=== PATIENT | female | born 1980 | race Caucasian/White ===

== ENCOUNTER 2016-09-17 17:59 | Outpatient (CLI) | payer OTHER ==
[~2016-09-17] VITALS: Ht 167.6 cm; Wt 68.2 kg
[2016-09-17] MEDS ORDERED: KETOROLAC 30 MG/1 ML ONE (18:29)
[2016-09-17] MEDS ORDERED: KETOROLAC 30 MG/1 ML IM ONE (18:30)
[2016-09-17] MEDS ORDERED: PLEASE ENTER HEIGHT AND WEIGHT MC SCH (18:30)
[2016-09-17 18:45] VITALS: BP 106/55
== END 2016-09-17 20:10 | disposition home or self-care (01) ==
LOC: LDOP 17:59
PROVIDERS: ATTEND Obstetrics & Gynecology
DX: O09.522 Supervision of elderly multigravida, second trimester (principal); O26.892 Other specified pregnancy related conditions, second trimester; R10.9 Unspecified abdominal pain; O62.9 Abnormality of forces of labor, unspecified; Z3A.27 27 weeks gestation of pregnancy
CPT/HCPCS: 36415; 59025; 81003; 82731; 87086; 96372; 99201; J1885; G0463

== ENCOUNTER 2016-09-25 03:04 | Outpatient (CLI) | payer OTHER ==
[~2016-09-25] VITALS: Ht 160 cm; Wt 68.0 kg
[2016-09-25 03:30] VITALS: BP 110/64
[2016-09-25] MEDS ORDERED: KETOROLAC 30 MG/1 ML ONE (04:26)
[2016-09-25] MEDS ORDERED: KETOROLAC 30 MG/1 ML IM ONE (04:30)
== END 2016-09-25 04:45 | disposition home or self-care (01) ==
LOC: LDOP 03:04
PROVIDERS: ATTEND Obstetrics & Gynecology
DX: O09.523 Supervision of elderly multigravida, third trimester (principal); O26.893 Other specified pregnancy related conditions, third trimester; R10.9 Unspecified abdominal pain; O34.13 Maternal care for benign tumor of corpus uteri, third trimester; Z3A.29 29 weeks gestation of pregnancy
CPT/HCPCS: 59025; 81001; 87086; 87147; 99211; J1885; G0463

== ENCOUNTER 2016-11-01 17:15 | Inpatient (IN) | payer OTHER ==
[~2016-11-01] VITALS: Ht 162.6 cm; Wt 68.6 kg
[2016-11-01] MEDS: PLEASE ENTER HEIGHT AND WEIGHT MC SCH (18:30)
[2016-11-01] MEDS ORDERED: MAGNESIUM SULFATE PMX 4GM/100M 100 ML IVPB ONE (18:30)
[2016-11-01] MEDS ORDERED: MAGNESIUM SULF. PMX 20GM/500ML 500 ML IV ONE (18:31)
[2016-11-01] MEDS ORDERED: BETAMETHASONE 6 MG/ML, 5ML IM ONE (18:36)
[2016-11-01] MEDS: LACTATED RINGERS 1,000 ML IV PRN (18:41)
[2016-11-01] MEDS: BETAMETHASONE 6 MG/ML, 5ML IM SCH (18:52)
[2016-11-01] MEDS ORDERED: AMPICILLIN 2 GM IM ONE (19:00)
[2016-11-01] MEDS: MAGNESIUM SULF. PMX 20GM/500ML 500 ML IV SCH (19:12)
[2016-11-01] MEDS ORDERED: AMPICILLIN 2 GM in SODIUM CHLORIDE 0.9% 100 ML IV SCH (19:30)
[2016-11-01 20:02] VITALS: BP 115/62
[2016-11-02] MEDS ORDERED: MAGNESIUM SULF. PMX 20GM/500ML 500 ML IV ONE ×3 (00:55→22:01)
[2016-11-02] MEDS: LACTATED RINGERS 1,000 ML IV PRN ×2 (00:59→11:50)
[2016-11-02] MEDS: AMPICILLIN 1 GM in SODIUM CHLORIDE 0.9% 50 ML IV SCH ×4 (01:00→18:22)
[2016-11-02] MEDS ORDERED: AMPICILLIN 1 GM IVPB SCH (01:00)
[2016-11-02] MEDS: MAGNESIUM SULF. PMX 20GM/500ML 500 ML IV SCH ×3 (01:02→22:05)
[2016-11-02] MEDS: PLEASE ENTER HEIGHT AND WEIGHT MC SCH (02:30)
[2016-11-02] MEDS ORDERED: ACETAMINOPHEN 325 MG TABLET ONE ×2 (07:36→11:57)
[2016-11-02] MEDS: ACETAMINOPHEN 325 MG TABLET PO PRN ×2 (07:39→11:57)
[2016-11-02 07:40] VITALS: BP 113/64
[2016-11-02] MEDS ORDERED: OXYcodone/APAP 5/325MG TABLET ONE (12:15)
[2016-11-02 12:23] VITALS: BP 114/56
[2016-11-02] MEDS ORDERED: OXYcodone/APAP 5/325MG TABLET PO PRN (12:30)
[2016-11-02] MEDS: BETAMETHASONE 6 MG/ML, 5ML IM SCH (18:22)
[2016-11-02 18:23] VITALS: BP 105/55
[2016-11-03] MEDS: AMPICILLIN 1 GM in SODIUM CHLORIDE 0.9% 50 ML IV SCH ×3 (00:36→13:00)
[2016-11-03] MEDS: LACTATED RINGERS 1,000 ML IV PRN (00:36)
[2016-11-03 07:59] VITALS: BP 93/52
[2016-11-03] MEDS ORDERED: MAGNESIUM SULFATE PMX 2GM/50ML 50 ML ONE (08:15)
[2016-11-03] MEDS: MAGNESIUM SULF. PMX 20GM/500ML 500 ML IV SCH (08:19)
[2016-11-03 18:10] VITALS: BP 106/56
[2016-11-03] MEDS ORDERED: NIFE10CA2 PO (18:32)
== END 2016-11-03 20:05 | disposition home or self-care (01) | DRG 778 ==
LOC: LDOP 17:15 → 2NE 18:50
PROVIDERS: ADMIT Obstetrics & Gynecology; ATTEND Obstetrics & Gynecology
DX: O60.03 Preterm labor without delivery, third trimester (principal); O34.13 Maternal care for benign tumor of corpus uteri, third trimester; D25.9 Leiomyoma of uterus, unspecified; O99.820 Streptococcus B carrier state complicating pregnancy; O24.419 Gestational diabetes mellitus in pregnancy, unspecified control; O09.523 Supervision of elderly multigravida, third trimester; Z3A.33 33 weeks gestation of pregnancy
CPT/HCPCS: 36415; 81001; 82731; 82962; 83735; 85025; 86850; 86900; 87081; 87086; 87147; J0290; J0702; J3475; J7120

== ENCOUNTER 2016-11-04 21:17 | Inpatient (IN) | payer OTHER ==
[~2016-11-04] VITALS: Ht 167.6 cm; Wt 72.7 kg
[~2016-11-04 21:17] MED LIST: NIFE10CA2 PO
[2016-11-04 21:30] VITALS: BP 101/56
[2016-11-04] MEDS ORDERED: NEWBORN KIT ONE (21:49)
[2016-11-04] MEDS ORDERED: OXYTOCIN 30U/ 0.9% NaCL 500ML 500 ML ONE (21:49)
[2016-11-04] MEDS ORDERED: D5%-LACTATED RINGERS 1,000 ML IV SCH (22:02)
[2016-11-04] MEDS ORDERED: OXYTOCIN 30U/ 0.9% NaCL 500ML 500 ML IV ONE (22:02)
[2016-11-04] MEDS ORDERED: AMPICILLIN 2 GM in SODIUM CHLORIDE 0.9% 100 ML IVPB STA (22:02)
[2016-11-04] MEDS: LACTATED RINGERS 1,000 ML IV SCH (22:11)
[2016-11-04] MEDS ORDERED: FENTANYL PF 100 MCG/2ML IV PRN (22:30)
[2016-11-04] MEDS ORDERED: TERBUTALINE 1 MG/ML, 1ML IVPush PRN ×2 (22:30)
[2016-11-04] MEDS ORDERED: CALCIUM CARBONATE 500 MG TAB.CHEW PO PRN (22:30)
[2016-11-04] MEDS ORDERED: ONDANSETRON 2MG/ML, 2ML IVPush PRN (22:30)
[2016-11-04] MEDS ORDERED: FENTANYL PF 100 MCG/2ML IVPush PRN (22:30)
[2016-11-04] MEDS ORDERED: TERBUTALINE 1 MG/ML, 1ML SQ PRN (22:30)
[2016-11-04] MEDS ORDERED: FENTANYL PF 100 MCG/2ML ONE (22:34)
[2016-11-04] MEDS ORDERED: ONDANSETRON 2MG/ML, 2ML ONE (23:02)
[2016-11-04] MEDS ORDERED: LIDOCAINE 1%, 20ML ONE (23:27)
[2016-11-04] MEDS ORDERED: MISOPROSTOL 200 MCG TABLET ONE (23:27)
[2016-11-05] MEDS: LACTATED RINGERS 1,000 ML IV SCH ×2 (00:47→11:57)
[2016-11-05] MEDS: AMPICILLIN 1 GM in SODIUM CHLORIDE 0.9% 50 ML IVPB SCH ×5 (02:27→14:30)
[2016-11-05 08:01] VITALS: BP 105/62
== END 2016-11-05 17:35 | disposition home or self-care (01) | DRG 781 ==
LOC: LDOP 21:17 → LDIP 21:52
PROVIDERS: ADMIT Obstetrics & Gynecology; ATTEND Obstetrics & Gynecology
DX: O24.410 Gestational diabetes mellitus in pregnancy, diet controlled (principal); O60.03 Preterm labor without delivery, third trimester; O99.820 Streptococcus B carrier state complicating pregnancy; Z3A.34 34 weeks gestation of pregnancy; O24.419 Gestational diabetes mellitus in pregnancy, unspecified control; O09.523 Supervision of elderly multigravida, third trimester
CPT/HCPCS: 36415; 81001; 82962; 85025; 86850; 86900; 87086; J0290; J2405; J3010; J7120

== ENCOUNTER 2016-11-25 02:14 | Inpatient (IN) | payer OTHER ==
[~2016-11-25] VITALS: Ht 162.6 cm; Wt 68.0 kg
[2016-11-25 02:45] VITALS: BP 123/76
[2016-11-25] MEDS ORDERED: OXYTOCIN 30U/ 0.9% NaCL 500ML 500 ML ONE ×2 (05:09→10:30)
[2016-11-25] MEDS ORDERED: NEWBORN KIT ONE (05:09)
[2016-11-25] MEDS ORDERED: OXYTOCIN 30U/ 0.9% NaCL 500ML 500 ML IV ONE (05:10)
[2016-11-25] MEDS ORDERED: AMPICILLIN 2 GM in SODIUM CHLORIDE 0.9% 50 ML IVPB STA (05:10)
[2016-11-25] MEDS: LACTATED RINGERS 1,000 ML IV SCH ×8 (05:15→22:31)
[2016-11-25] MEDS ORDERED: FENTANYL PF 100 MCG/2ML IVPush PRN (05:30)
[2016-11-25] MEDS ORDERED: ONDANSETRON 2MG/ML, 2ML IVPush PRN (05:30)
[2016-11-25] MEDS ORDERED: TERBUTALINE 1 MG/ML, 1ML SQ PRN (05:30)
[2016-11-25] MEDS ORDERED: FENTANYL PF 100 MCG/2ML IV PRN (05:30)
[2016-11-25] MEDS ORDERED: TERBUTALINE 1 MG/ML, 1ML IVPush PRN ×2 (05:30)
[2016-11-25] MEDS ORDERED: FENTANYL/BUPIV./NS/PF 250 ML EPIDCONT ONE (06:17)
[2016-11-25] MEDS ORDERED: FENTANYL/BUPIV./NS/PF 250 ML EPIDCONT SCH (06:31)
[2016-11-25] MEDS ORDERED: ONDANSETRON 2MG/ML, 2ML ONE (06:51)
[2016-11-25] MEDS ORDERED: LACTATED RINGERS 1,000 ML IVBOLUS PRN ×2 (07:00→07:30)
[2016-11-25] MEDS: EPHEDRINE 50 MG/ML, 1ML IVPush PRN ×2 (07:12→07:58)
[2016-11-25] MEDS: AMPICILLIN 1 GM in SODIUM CHLORIDE 0.9% 50 ML IV SCH ×4 (09:35→21:30)
[2016-11-25] MEDS ORDERED: LIDOCAINE 1%, 20ML ONE (10:28)
[2016-11-25] MEDS ORDERED: MISOPROSTOL 200 MCG TABLET ONE (10:28)
[2016-11-25] MEDS: OXYTOCIN 30U/ 0.9% NaCL 500ML 500 ML IV SCH ×2 (12:54→22:54)
[2016-11-25] MEDS ORDERED: METHYLERGONOVINE 0.2 MG/ML IM PRN (13:00)
[2016-11-25] MEDS ORDERED: ONDANSETRON 2MG/ML, 2ML IV PRN (13:00)
[2016-11-25] MEDS ORDERED: OXYcodone/APAP 5/325MG TABLET PO PRN (13:00)
[2016-11-25] MEDS ORDERED: ACETAMINOPHEN 325 MG TABLET PO PRN (13:00)
[2016-11-25] MEDS ORDERED: GLYCERIN ADULT SUPP PR PRN (13:00)
[2016-11-25] MEDS ORDERED: MISOPROSTOL 200 MCG TABLET PR PRN (13:00)
[2016-11-25] MEDS ORDERED: METOCLOPRAMIDE 5 MG/ML, 2ML IV PRN (13:00)
[2016-11-25 15:35] VITALS: BP 122/75
[2016-11-25] MEDS: IBUPROFEN 600 MG TABLET PO PRN ×2 (16:28→22:37)
[2016-11-25 19:30] VITALS: BP 116/72
[2016-11-25] MEDS: DOCUSATE 100 MG CAPSULE PO PRN (22:37)
[2016-11-26 01:00] VITALS: BP 114/74
[2016-11-26 04:15] VITALS: BP 112/65
[2016-11-26] MEDS ORDERED: DIPH,PERTUSS(ACELL),TET VAC/PF NC IM-VACC ONE (04:30)
[2016-11-26] MEDS: IBUPROFEN 600 MG TABLET PO PRN ×3 (04:44→21:58)
[2016-11-26] MEDS: LACTATED RINGERS 1,000 ML IV SCH ×2 (05:10→13:10)
[2016-11-26 08:09] VITALS: BP 118/55
[2016-11-26] MEDS: OXYTOCIN 30U/ 0.9% NaCL 500ML 500 ML IV SCH (08:54)
[2016-11-26] MEDS: PRENATAL VIT/IRON/FA 1 EACH TABLET PO SCH (09:48)
[2016-11-26] MEDS: DOCUSATE 100 MG CAPSULE PO PRN ×2 (09:48→21:58)
[2016-11-26] MEDS: OXYcodone IR 5MG TABLET PO PRN ×2 (15:41→21:58)
[2016-11-26 20:00] VITALS: BP 114/75
[2016-11-27] MEDS: OXYcodone IR 5MG TABLET PO PRN (04:47)
[2016-11-27] MEDS: IBUPROFEN 600 MG TABLET PO PRN (04:48)
[2016-11-27] MEDS ORDERED: IBUP-1222 PO (06:13)
[2016-11-27] MEDS ORDERED: OXYC-302 PO (06:13)
[2016-11-27] MEDS ORDERED: DOCU-30 PO (06:15)
[2016-11-27] MEDS ORDERED: FERR324T8 PO (06:17)
[2016-11-27] MEDS ORDERED: FERROUS GLUCONATE 324 MG TABLET PO SCH (08:00)
[2016-11-27] MEDS: DOCUSATE 100 MG CAPSULE PO PRN (08:11)
[2016-11-27] MEDS: PRENATAL VIT/IRON/FA 1 EACH TABLET PO SCH (08:11)
[2016-11-27 08:15] VITALS: BP 114/74
== END 2016-11-27 10:57 | disposition home or self-care (01) | DRG 775 ==
LOC: LDOP 02:14 → LDIP 05:09 → 2NW 15:25
PROVIDERS: ADMIT Obstetrics & Gynecology; ATTEND Obstetrics & Gynecology
PROC: 10E0XZZ Delivery of Products of Conception, External Approach (ICD-10-PCS; principal; 2016-11-25)
PROC: 10907ZC Drainage of Amniotic Fluid, Therapeutic from Products of Conception, Via Natural or Artificial Opening (ICD-10-PCS; 2016-11-25)
PROC: 0HQ9XZZ Repair Perineum Skin, External Approach (ICD-10-PCS; 2016-11-25)
PROC: 00HU33Z Insertion of Infusion Device into Spinal Canal, Percutaneous Approach (ICD-10-PCS; 2016-11-25)
PROC: 3E0R3CZ (ICD-10-PCS; 2016-11-25)
DX: O99.824 Streptococcus B carrier state complicating childbirth (principal); Z37.0 Single live birth; Z3A.37 37 weeks gestation of pregnancy; O24.420 Gestational diabetes mellitus in childbirth, diet controlled; O34.13 Maternal care for benign tumor of corpus uteri, third trimester; D25.9 Leiomyoma of uterus, unspecified; O70.0 First degree perineal laceration during delivery; Z23 Encounter for immunization
CPT/HCPCS: 36415; 82803; 82962; 85025; 86850; 86900; 89060; 90715; J0290; J2405; J7120; Q0114

== ENCOUNTER → 2017-11-24 | Outpatient (CLI) | payer OTHER ==
[~2017-11-24] MED LIST changes: +DOCU-131 PO; +FERR324T8 PO; +IBUP-1222 PO; +NONE PER PT; +OXYC-302 PO
[2017-11-24 13:53] LABS: BASOPHILS # (AUTO) 0.03 x10^3/uL (0-0.1); BASOPHILS % (AUTO) 0 % (0-1); EOSINOPHILS # (AUTO) 0.13 x10^3/uL (0-0.4); EOSINOPHILS % (AUTO) 2 % (1-7); LYMPHOCYTES # (AUTO) 2.22 x10^3/uL (1-3.4); LYMPHOCYTES % (AUTO) 35 % (22-44); MD NO; MEAN CORPUSCULAR HEMOGLOBIN 31.3 pg (27.0-34.8); MEAN CORPUSCULAR HGB CONC 33.4 g/dL (32.4-35.8); MEAN CORPUSCULAR VOLUME 93.7 fL (80-100); MEAN PLATELET VOLUME 8.6 fL (7.4-10.4); MONOCYTES # (AUTO) 0.37 x10^3/uL (0.2-0.8); MONOCYTES % (AUTO) 6 % (2-9); NEUTROPHILS # (AUTO) 3.61 x10^3/uL (1.8-6.8); NEUTROPHILS % (AUTO) 57 % (42-75); PLATELET COUNT 235 x10^3/uL (130-400); RED BLOOD COUNT 4.25 x10^6/uL (3.82-5.3); RED CELL DISTRIBUTION WIDTH 13.3 % (9.6-15.2)
== END | disposition home or self-care (01) ==
LOC: STAR 13:07
PROVIDERS: ATTEND Obstetrics & Gynecology
DX: Z01.818 Encounter for other preprocedural examination (principal); D25.9 Leiomyoma of uterus, unspecified; N93.9 Abnormal uterine and vaginal bleeding, unspecified
CPT/HCPCS: 36415; 84703; 85025

== ENCOUNTER 2017-11-28 13:04 | Inpatient (IN) | payer OTHER ==
[~2017-11-28] VITALS: Ht 162.6 cm; Wt 63.5 kg
[2017-11-28] MEDS ORDERED: OxyconTIN ER 20 MG TAB.ER PO ONE (13:30)
[2017-11-28] MEDS ORDERED: ONDANSETRON ODT 8 MG PO ONE (13:30)
[2017-11-28] MEDS ORDERED: GABAPENTIN 300 MG CAPSULE PO ONE (13:30)
[2017-11-28] MEDS ORDERED: SCOPOLAMINE PATCH, 1.5MG PATCH.TD72 TD ONE (13:30)
[2017-11-28] MEDS ORDERED: ACETAMINOPHEN 500 MG TABLET PO ONE (13:30)
[2017-11-28 13:34] VITALS: BP 102/69
[2017-11-28] MEDS ORDERED: FENTANYL PF 250 MCG/5ML ONE (13:55)
[2017-11-28] MEDS ORDERED: MIDAZOLAM 1 MG/ML, 2ML ONE (13:55)
[2017-11-28] MEDS ORDERED: ROCURONIUM 10MG/ML,5ML ONE (13:56)
[2017-11-28] MEDS ORDERED: PROPOFOL 10 MG/ML, 20ML ONE (13:56)
[2017-11-28] MEDS ORDERED: NEOSTIGMINE 1 MG/ML, 10ML ONE (13:57)
[2017-11-28] MEDS ORDERED: DEXAMETHASONE 4 MG/ML, 1ML ONE ×2 (13:57)
[2017-11-28] MEDS ORDERED: GLYCOPYRROLATE 0.4 MG/2 ML, 2ML ONE (13:57)
[2017-11-28 14:01] LABS: HCG UR SG 1.027 (1.003-1.030)
[2017-11-28] MEDS ORDERED: FLUORESCEIN SODIUM 500 MG/5 ML ONE (14:49)
[2017-11-28] MEDS ORDERED: EPINEPHRINE 1 MG/ML, 1ML ONE (14:49)
[2017-11-28] MEDS ORDERED: BUPIVACAINE 0.25% ONE (14:49)
[2017-11-28] MEDS ORDERED: hydrALAzine 20 MG/ML, 1ML IV PRN (15:00)
[2017-11-28] MEDS ORDERED: PROMETHAZINE 12.5 MG SUPP PR PRN (15:00)
[2017-11-28] MEDS ORDERED: MORPHINE SULFATE 4 MG/ML, 1ML IVPush PRN (15:00)
[2017-11-28] MEDS ORDERED: MEPERIDINE/PF 25MG/0.5ML IVPush PRN (15:00)
[2017-11-28] MEDS ORDERED: OXYcodone 5 MG/5 ML ORAL.SOL UDC PO PRN (15:00)
[2017-11-28] MEDS ORDERED: ONDANSETRON ODT 8 MG PO PRN (15:00)
[2017-11-28] MEDS ORDERED: PROMETHAZINE 25 MG SUPP PR PRN (15:00)
[2017-11-28] MEDS ORDERED: HYDROmorphone 1 MG/ML, 1ML IV PRN (15:00)
[2017-11-28] MEDS ORDERED: PROMETHAZINE 25 MG/ML, 1ML IV PRN (15:00)
[2017-11-28] MEDS ORDERED: LABETALOL 5MG/ML, 20ML IV PRN (15:00)
[2017-11-28] MEDS ORDERED: FENTANYL PF 100 MCG/2ML IV PRN (15:00)
[2017-11-28] MEDS ORDERED: CEFAZOLIN 1,000 MG ONE ×2 (15:29)
[2017-11-28] MEDS ORDERED: WATER-INJECTION,STERILE 10 ML IV ONE (15:29)
[2017-11-28] MEDS ORDERED: FENTANYL PF 100 MCG/2ML ONE ×2 (17:04→18:08)
[2017-11-28] MEDS ORDERED: INDIGO CARMINE 0.8%, 5ML ONE (18:11)
[2017-11-28] MEDS ORDERED: KETOROLAC 30 MG/1 ML ONE (18:17)
[2017-11-28] MEDS ORDERED: PROMETHAZINE 25 MG/ML, 1ML ONE (19:18)
[2017-11-28 20:15] VITALS: BP 116/62
[2017-11-28] MEDS ORDERED: morphine SULFATE 10 MG/ML, 1ML IV PRN (21:00)
[2017-11-28] MEDS ORDERED: OXYcodone/APAP 5/325MG TABLET PO PRN (21:00)
[2017-11-28] MEDS ORDERED: SENNA/DOCUSATE TABLET PO SCH (21:00)
[2017-11-28] MEDS ORDERED: ZOLPIDEM 5MG TABLET PO PRN (21:00)
[2017-11-28] MEDS: IV FLUIDS MC SCH (21:00)
[2017-11-28] MEDS ORDERED: ACETAMINOPHEN 650 MG SUPP PR PRN (21:30)
[2017-11-28] MEDS ORDERED: ACETAMINOPHEN 325 MG TABLET PO PRN (21:30)
[2017-11-28] MEDS: IBUPROFEN 600 MG TABLET PO SCH (22:11)
[2017-11-28] MEDS: SIMETHICONE 80 MG CHEW TAB PO SCH (22:11)
[2017-11-29 00:08] VITALS: BP 99/57
[2017-11-29 04:35] VITALS: BP 90/51
[2017-11-29] MEDS: IV FLUIDS MC SCH ×2 (05:00→13:00)
[2017-11-29 05:19] LABS: BASOPHILS % (AUTO) 0 % (0-1); EOSINOPHILS % (AUTO) 0 % (1-7); LYMPHOCYTES # (AUTO) 0.96 x10^3/uL (1-3.4); LYMPHOCYTES % (AUTO) 9 % (22-44); MD NO; MEAN CORPUSCULAR HEMOGLOBIN 30.9 pg (27.0-34.8); MEAN CORPUSCULAR HGB CONC 33.3 g/dL (32.4-35.8); MEAN CORPUSCULAR VOLUME 92.9 fL (80-100); MEAN PLATELET VOLUME 8.9 fL (7.4-10.4); MONOCYTES # (AUTO) 0.35 x10^3/uL (0.2-0.8); MONOCYTES % (AUTO) 3 % (2-9); NEUTROPHILS # (AUTO) 8.99 x10^3/uL (1.8-6.8); NEUTROPHILS % (AUTO) 87 % (42-75); PLATELET COUNT 189 x10^3/uL (130-400); RED BLOOD COUNT 3.78 x10^6/uL (3.82-5.3); RED CELL DISTRIBUTION WIDTH 13.2 % (9.6-15.2)
[2017-11-29] MEDS: IBUPROFEN 600 MG TABLET PO SCH ×2 (06:47→10:28)
[2017-11-29 07:48] VITALS: BP 94/55
[2017-11-29] MEDS: SIMETHICONE 80 MG CHEW TAB PO SCH (08:23)
[2017-11-29 13:34] VITALS: BP 83/41
[2017-11-29] MEDS ORDERED: PHEN-418 PO (14:30)
[2017-11-29] MEDS ORDERED: PHEN100T90 PO (14:30)
[2017-11-29] MEDS ORDERED: OXYC-302 PO (14:31)
[2017-11-29] MEDS ORDERED: IBUP-1223 PO (14:33)
[2017-11-29] MEDS ORDERED: ONDA4TAB10 PO (14:34)
[2017-11-29] MEDS ORDERED: SENN-31 PO (14:37)
== END 2017-11-29 14:58 | disposition home or self-care (01) | DRG 743 ==
LOC: OUT 13:04 → 4NOR 20:00 → OUT 23:08 → 4NOR 11-29 06:09 → DCLOUNGE 11-29 14:42
PROVIDERS: ADMIT Obstetrics & Gynecology; ATTEND Obstetrics & Gynecology
PROC: 0UT74ZZ Resection of Bilateral Fallopian Tubes, Percutaneous Endoscopic Approach (ICD-10-PCS; 2017-11-28)
PROC: 0TJB8ZZ Inspection of Bladder, Via Natural or Artificial Opening Endoscopic (ICD-10-PCS; 2017-11-28)
PROC: 0UT94ZZ Resection of Uterus, Percutaneous Endoscopic Approach (ICD-10-PCS; principal; 2017-11-28 15:00)
DX: D25.9 Leiomyoma of uterus, unspecified (principal); N93.9 Abnormal uterine and vaginal bleeding, unspecified
CPT/HCPCS: 36415; 81025; 85025; 88307; J0171; J0690; J1100; J1885; J2250; J2550; J2704; J2710; J3010; J3490; Q0162

== ENCOUNTER 2021-01-08 12:28 | Emergency (ER) | payer OTHER ==
[~2021-01-08] VITALS: Ht 160 cm; Wt 66.0 kg
[~2021-01-08 12:28] MED LIST changes: +IBUP-1223 PO; -NIFE10CA2 PO; +NIFE10CA49 PO; +ONDA4TAB10 PO; -OXYC-302 PO; +OXYC1TAB14 PO; +PHEN-418 PO; +PHEN100T90 PO; +SENN-31 PO
[2021-01-08 12:31] VITALS: BP 111/73
--- NOTE | 2021-01-08 13:02 | NUR ---
PT AWARE OF PLAN FOR COVID SWAB, THEN DC.
[2021-01-08] MEDS ORDERED: DEXAMETHASONE 4 MG/ML, 1ML ONE (13:24)
== END 2021-01-08 13:14 | disposition home or self-care (01) ==
LOC: ED 13:04
DX: U07.1 COVID-19 (principal); B34.9 Viral infection, unspecified
CPT/HCPCS: 99283; U0003; U0005